=== PATIENT | female | born 1965 | race Caucasian/White ===

== ENCOUNTER 2016-08-26 21:12 | Emergency (ER) | payer MEDICARE, OTHER ==
--- NOTE | 2016-08-26 22:19 | ED ---
Overdose HPI - General Chief Complaint: Overdose Stated Complaint: Overdose Time Seen by Provider: 08/26/16 21:47 Source: patient, family, RN notes reviewed Mode of arrival: wheelchair Limitations: altered mental status - History of Present Illness Initial Comments: Patient is a 51-year-old female presents to the emergency room for evaluation of possible overdose. Patient states she's been very exhausted for the past 3- 4 days. Patient states that she has not been able to sleep. Patient states that she takes tizanidine for chronic pain. Patient states she is only supposed to take 3 per day. Patient states she took 20 throughout the day because she just wanted to sleep. Patient states that her children brought her here because they were worried. Patient states she is not suicidal. Patient states she had no plans on ending her life or harming herself. Patient states she just wanted to sleep. Patient states she has an appointment with her neurologist tomorrow. Patient denies homicidal ideations. Patient denies visual or auditory hallucinations. Patient denies headache, dizziness, abdominal pain, chest pain, shortness of breath. Patient does states she is extremely tired right now. Patient denies any other symptoms or complaints. - Related Data Home Medications Medication Instructions Recorded Confirmed Cyanocobalamin [Vitamin B-12 1,000 mcg SQ QMONTH 01/26/16 01/26/16 Injection] Ibuprofen [Motrin] 800 mg PO TID PRN 01/26/16 01/26/16 Nystatin 100,000 Unit/gm Powd 1 applic TOPICAL DAILY 01/26/16 01/26/16 [Mycostatin Powder] levETIRAcetam [Keppra] 250 mg PO Q12HR 01/26/16 01/26/16 oxyCODONE-APAP 10-325MG [Percocet 1 tab PO TID PRN 01/26/16 01/26/16 10-325 mg] rOPINIRole HCL [Requip] 0.5 mg PO HS 01/26/16 01/26/16 tiZANidine HCL [Zanaflex] 4 mg PO TID 01/26/16 01/26/16 Previous Rx's Medication Instructions Recorded Benzocaine/Menthol Lozeng [Cepacol 1 each MUCOUS MEM Q4HR PRN #30 02/02/16 lozenge] lozenge DULoxetine HCL [Cymbalta] 60 mg PO DAILY #30 capsule. 02/02/16 Fluticasone Nasal [place] [Flonase 2 spray EA NOSTRIL DAILY #1 spr 02/02/16 Nasal [place]] Gabapentin [Neurontin] 200 mg PO QID #120 cap 02/02/16 Lurasidone [Latuda] 40 mg PO DAILY #30 tab 02/02/16 Metoprolol Tartrate [Lopressor] 50 mg PO BID #60 tab 02/02/16 guaiFENesin [Mucinex] 600 mg PO Q12HR PRN #30 tablet.er 02/02/16 lamoTRIgine [LaMICtal] 50 mg PO BID #60 tab 02/02/16 lamoTRIgine [LaMICtal] 100 mg PO BID #60 tab 02/02/16 Allergies Allergy/AdvReac Type Severity Reaction Status Date / Time erythromycin base Allergy Unknown Verified 08/26/16 21:21 pregabalin [From Lyrica] Allergy Hallucinati Verified 08/26/16 21:21 ons codeine AdvReac Abdominal Verified 08/26/16 21:21 Pain meperidine [From Demerol] AdvReac Unknown Verified 08/26/16 21:21 Review of Systems ROS Statement: Those systems with pertinent positive or pertinent negative responses have been documented in the HPI. ROS Other: All systems not noted in ROS Statement are negative. 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 ago that she only had 10 yrs. to live; She was to have an MRI today 01/26/16 on her R shoulder but came to the hospital instead; She's afraid she has a tumor again. History of Any Multi-Drug Resistant Organisms: None Reported Past Surgical History: Bariatric Surgery, Breast Surgery, Section, Cholecystectomy, Hysterectomy, Orthopedic Surgery, Tonsillectomy, Tubal Ligation Additional Past Surgical History / Comment(s): gastric bypass and a revision; Bilat. Breast reduction; Bilat. Buionectomy; Left T & A only; Left Clavicle Biopsy; Colonoscopy, left lymph node excision, tubal ligation, partial hysterectomy, bilateral bunionectomy, bilateral plantar fasciiotomy. Past Anesthesia/Blood Transfusion Reactions: No Reported Reaction Additional Past Anesthesia/Blood Transfusion Reaction / Comment(s): Pt. was slow to awaken after surgery due to Demerol, which is now listed as an allergy. Past Psychological History: Anxiety, Bipolar, Depression, PTSD Smoking Status: Former smoker Past Alcohol Use History: Rare Past Drug Use History: Opiates, Prescription Drug Abuse - Past Family History Father Family Medical History: Cancer (Father at age of 62 from leukemia.) Mother Family Medical History: CVA/TIA (Mother at age of 70 from CVA.) Brother(s) Family Medical History: Coronary Artery Disease (CAD) (Patient has one brother with CAD.) Sister(s) Family Medical History: Coronary Artery Disease (CAD) (Patient has 2 sisters with CAD.) Son(s) Family Medical History: No Reported History (Patient has 2 sons no major medical problems) General Exam - General Exam Comments Initial Comments: laying in exam room, sleeping but arousable when spoken to Limitations: altered mental status General appearance: alert, in no apparent distress Head exam: Present: atraumatic, normocephalic, normal inspection Eye exam: Present: normal appearance ENT exam: Present: normal exam Neck exam: Present: normal inspection Respiratory exam: Present: normal lung sounds bilaterally. Absent: respiratory distress Cardiovascular Exam: Present: regular rate, normal rhythm, normal heart sounds GI/Abdominal exam: Present: soft, normal bowel sounds. Absent: distended, tenderness, guarding, rebound, rigid Extremities exam: Present: normal inspection Back exam: Present: normal inspection Neurological exam: Present: alert, oriented X3, CN II-XII intact, normal gait Psychiatric exam: Present: normal affect, normal mood Skin exam: Present: warm, dry, intact, normal color. Absent: rash Course Vital Signs 08/26/16 08/26/16 08/27/16 21:14 21:46 01:01 Temperature 97 F L 97.3 F L Pulse Rate 60 66 77 Respiratory 16 18 16 Rate Blood Pressure 150/78 85/60 O2 Sat by Pulse 98 98 97 Oximetry 08/27/16 02:24 Temperature 97.3 F L Pulse Rate 60 Respiratory 16 Rate Blood Pressure 102/56 O2 Sat by Pulse 98 Oximetry Medical Decision Making - Medical Decision Making patient is a 51-year-old female presents to the emergency room for evaluation medication overdose. Patient states she overdosed on her pain medications due to wanting to sleep. Poison control was contacted. Poison control states no further workup was needed and when patient is alert enough she can be discharged home. Patient is medically cleared to be evaluated by psych. Patient evaluated by psych and states that patient can be discharged home. - Lab Data Result diagrams: 08/26/16 22:45 08/26/16 22:45 Lab Results 08/26/16 08/26/16 Range/Units 22:45 22:45 WBC 15.3 H (3.8-10.6) k/uL RBC 5.18 (3.80-5.40) m/uL Hgb 14.4 (11.4-16.0) gm/dL Hct 44.5 (34.0-46.0) % MCV 85.9 (80.0-100.0) fL MCH 27.7 (25.0-35.0) pg MCHC 32.2 (31.0-37.0) g/dL RDW 13.6 (11.5-15.5) % Plt Count 358 (150-450) k/uL Neutrophils % 86 % Lymphocytes % 9 % Monocytes % 3 % Eosinophils % 1 % Basophils % 1 % Neutrophils # 13.1 H (1.3-7.7) k/uL Lymphocytes # 1.3 (1.0-4.8) k/uL Monocytes # 0.5 (0-1.0) k/uL Eosinophils # 0.1 (0-0.7) k/uL Basophils # 0.1 (0-0.2) k/uL Sodium 139 (137-145) mmol/L Potassium 3.7 (3.5-5.1) mmol/L Chloride 101 (98-107) mmol/L Carbon Dioxide 24 (22-30) mmol/L Anion Gap 14 mmol/L BUN 15 (7-17) mg/dL Creatinine 0.90 (0.52-1.04) mg/dL Est GFR (MDRD) Af Amer >60 (>60 ml/min/1.73 sqM) Est GFR (MDRD) Non-Af >60 (>60 ml/min/1.73 sqM) Glucose 208 H (74-99) mg/dL Calcium 9.8 (8.4-10.2) mg/dL Total Bilirubin 0.4 (0.2-1.3) mg/dL AST 16 (14-36) U/L ALT 33 (9-52) U/L Alkaline Phosphatase 149 H (38-126) U/L Total Protein 6.7 (6.3-8.2) g/dL Albumin 4.4 (3.5-5.0) g/dL Amylase <30 L (30-110) U/L Lipase 50 (23-300) U/L Salicylates <1.0 mg/dL Acetaminophen <10.0 ug/mL Serum Alcohol <10 mg/dL 08/26/16 23:37 normal sinus rhythm, ventricular rate 63 bpm, TN interval 160 ms, QRS duration 84 ms, QT/QTc 422/431 ms Disposition Clinical Impression: Medication overdose Disposition: HOME SELF-CARE Condition: Good Instructions: Opioid Overdose (ED) Additional Instructions: Please follow-up with primary care provider or psychiatrist. Take pain medications as directed. If any new symptom arises or symptoms worsen, return to ER as soon as possible. Referrals: Chloe Gonzalez MD [Primary Care Provider] - 1-2 days Time of Disposition: 01:03
[2016-08-26 23:18] LABS: ALT 33 U/L (9-52); AST 16 U/L (14-36); Acetaminophen <10.0 ug/mL; Alcohol <10 mg/dL; Alkaline Phosphatase 149 U/L (38-126); Amylase <30 U/L (30-110); Anion Gap 14 mmol/L; Blood Urea Nitrogen 15 mg/dL (7-17); Calcium 9.8 mg/dL (8.4-10.2); Carbon Dioxide 24 mmol/L (22-30); Chloride 101 mmol/L (98-107); Glucose 208 mg/dL (74-99); Non-African American GFR(MDRD) >60 (>60 ml/min/1.73 sqM); Potassium 3.7 mmol/L (3.5-5.1); Salicylate <1.0 mg/dL; Sodium 139 mmol/L (137-145); Total Bilirubin 0.4 mg/dL (0.2-1.3); Total Protein 6.7 g/dL (6.3-8.2)
[2016-08-26 23:19] LABS: Basophils # (A) 0.1 k/uL (0-0.2); Basophils % (A) 1 %; CH 27.8; CHCM 32.5; Eosinophils # (A) 0.1 k/uL (0-0.7); Eosinophils % (A) 1 %; HCT 44.5 % (34.0-46.0); HDW 2.61; HGB 14.4 gm/dL (11.4-16.0); Luc # (Auto) 0.11; Luc % (Auto) 1; Lymphocytes # (A) 1.3 k/uL (1.0-4.8); Lymphocytes % (A) 9 %; MCH 27.7 pg (25.0-35.0); MCHC 32.2 g/dL (31.0-37.0); MCV 85.9 fL (80.0-100.0); Monocytes # (A) 0.5 k/uL (0-1.0); Monocytes % (A) 3 %; Neutrophils # (A) 13.1 k/uL (1.3-7.7); Neutrophils % (A) 86 %; RBC 5.18 m/uL (3.80-5.40); RDW 13.6 % (11.5-15.5); WBC 15.3 k/uL (3.8-10.6); WBC (Perox) 14.51
[2016-08-27 01:10] VITALS: RESP 16; TEMP 97.3
[2016-08-27] MEDS ORDERED: SODIUM CHLORIDE 0.9% 1,000 ML IV ONE (01:11)
[2016-08-27 02:24] VITALS: BP 102/56; PULSE 60
== END 2016-08-27 02:34 | disposition home or self-care (01) ==
LOC: EC 21:12
DX: T42.8X1A Poisoning by antiparkinsonism drugs and other central muscle-tone depressants, accidental (unintentional), initial encounter (principal); R41.82 Altered mental status, unspecified; R53.83 Other fatigue; Z87.891 Personal history of nicotine dependence; Z79.899 Other long term (current) drug therapy; Z88.1 Allergy status to other antibiotic agents; Z88.5 Allergy status to narcotic agent; Z88.8 Allergy status to other drugs, medicaments and biological substances; Z85.72 Personal history of non-Hodgkin lymphomas; Z98.890 Other specified postprocedural states
CPT/HCPCS: 36415; 80053; 80299; 80320; 82075; 82150; 83520; 83690; 85025; 93005; 96360; 99284

== ENCOUNTER 2020-05-06 17:56 | Inpatient (IN) | payer MEDICARE, MEDICAID ==
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
[2020-05-06 19:57] LABS: Appearance,Urine Clear (Clear); Bacteria,Urine Rare /hpf; Bilirubin,Urine Negative (Negative); Blood,Urine Negative (Negative); Color,Urine Yellow; Glucose,Urine (UA) Negative (Negative); Ketones,Urine Negative (Negative); Leukocyte Esterase,Urine Large (Negative); Mucus,Urine Rare /hpf; Nitrite,Urine Negative (Negative); PH, Urine 5.5 (5.0-8.0); Protein,Urine Negative (Negative); Specific Gravity,Urine 1.025 (1.001-1.035); Squamous Epithelial Cell,Urine 2 /hpf (0-4); Urobilinogen,Urine <2.0 mg/dL (<2.0); WBC,Urine 19 /hpf (0-5)
[2020-05-06 20:02] LABS: Amphetamine Screen,Urine Not Detected (NotDetected); Benzodiazepines Screen,Urine Not Detected (NotDetected); Cocaine Screen,Urine Not Detected (NotDetected); Opiate Screen,Urine Detected (NotDetected); Phencyclidine Screen,Urine Not Detected (NotDetected); Tricyclic Antidepressant,Urine Not Detected (NotDetected); Urn Cannabinoid Scrn Not Detected (NotDetected)
[2020-05-06 20:03] LABS: Barbiturate Screen,Urine Not Detected (NotDetected); Methadone Screen, Urine Not Detected (NotDetected); Oxycodone Screen, Urine Not Detected (NotDetected)
[2020-05-06] MEDS ORDERED: LORazepam 1 MG TAB PO STA (20:17)
[2020-05-06] MEDS ORDERED: NYSTATIN 100,000 UNIT/GM POWD 15 GM TOPICAL PRN (22:27)
[2020-05-06] MEDS ORDERED: HYDROCORTISONE 1% CREAM 30 GM TUBE TOPICAL PRN (22:27)
[2020-05-06] MEDS ORDERED: NICOTINE 21MG/24HR PATCH TRANSDERM PRN (22:27)
[2020-05-06] MEDS ORDERED: SYMBICORT 160-4.5 MCG INHALER INHALATION PRN (22:27)
[2020-05-06] MEDS ORDERED: MAGNESIUM HYDROXIDE 2,400 MG/10 ML CUP PO PRN (22:29)
[2020-05-06] MEDS ORDERED: MAG HYDROX/AL HYDROX/SIMETH 30 ML CUP PO PRN (22:29)
[2020-05-06] MEDS ORDERED: LORazepam 2 MG/ML INJ IM PRN (22:31)
[2020-05-06] MEDS: lamoTRIgine 100 MG TAB PO SCH (23:35)
[2020-05-06] MEDS: LURASIDONE 20 MG TAB PO SCH (23:57)
[2020-05-07] MEDS: IBUPROFEN 800 MG TAB PO PRN ×2 (03:14→16:30)
[2020-05-07] MEDS: lamoTRIgine 100 MG TAB PO SCH ×2 (08:53→20:54)
[2020-05-07] MEDS: LOSARTAN 50 MG TAB PO SCH (08:53)
[2020-05-07] MEDS: FERROUS SULFATE 325 MG TAB PO SCH (08:54)
[2020-05-07] MEDS ORDERED: DULoxetine HCL 30 MG CAPSULE.DR PO SCH (09:00)
[2020-05-07] MEDS: ALBUTEROL HFA INHALER INHALATION PRN ×2 (09:49→20:54)
[2020-05-07] MEDS: LURASIDONE 20 MG TAB PO SCH ×2 (09:49→18:05)
[2020-05-07] MEDS: NICOTINE 21MG/24HR PATCH TRANSDERM SCH (09:50)
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
[2020-05-07] MEDS: PRAZOSIN 1 MG CAP PO SCH (20:56)
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
[2020-05-08] MEDS: NICOTINE 21MG/24HR PATCH TRANSDERM SCH (08:27)
[2020-05-08] MEDS: LURASIDONE 20 MG TAB PO SCH ×2 (08:27→17:10)
[2020-05-08] MEDS: lamoTRIgine 100 MG TAB PO SCH ×2 (08:29→20:44)
[2020-05-08] MEDS: LOSARTAN 50 MG TAB PO SCH ×2 (08:30→08:39)
[2020-05-08] MEDS: FERROUS SULFATE 325 MG TAB PO SCH (08:30)
[2020-05-08] MEDS: IBUPROFEN 800 MG TAB PO PRN ×2 (08:41→17:14)
[2020-05-08] MEDS ORDERED: DULoxetine HCL 30 MG CAPSULE.DR PO SCH (09:00)
[2020-05-08] MEDS ORDERED: VENLAFAXINE HCL ER 75 MG CAP PO STA (09:26)
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
[2020-05-08] MEDS: PRAZOSIN 1 MG CAP PO SCH (20:44)
[2020-05-09] MEDS: NICOTINE 21MG/24HR PATCH TRANSDERM SCH (08:57)
[2020-05-09] MEDS: LURASIDONE 20 MG TAB PO SCH ×2 (08:58→17:42)
[2020-05-09] MEDS: FERROUS SULFATE 325 MG TAB PO SCH (08:58)
[2020-05-09] MEDS: lamoTRIgine 25 MG TAB PO SCH (08:58)
[2020-05-09] MEDS: LOSARTAN 50 MG TAB PO SCH (08:59)
[2020-05-09] MEDS: ALBUTEROL HFA INHALER INHALATION PRN (09:00)
[2020-05-09] MEDS ORDERED: VENLAFAXINE HCL ER 75 MG CAP PO SCH (09:00)
--- NOTE | 2020-05-09 10:19 | P.PN ---
Progress Note - Text Progress Note Date: 05/09/20 Interval History: Patient was seen wandering the hallways and was directable and agreeable to speak with typewriter assembler in the office. The patient reports that "nothing has changed." She states that she remains worrisome about her future because she has no place to go to after she is discharged. She states that her friend is willing to take her back to the home but she does not want to return there. Furthermore, she expresses that she will has no income for appropriate housing. She states that she is desiring a particular apartment but that they have no vacancies at this time. The patient states that she is still suicidal because of her situation stating that she feels like there is no point. She continues to endorse significant depression and is tearful during the interview. She reports no significant changes to her mood regardless of the medication changes. The patient otherwise reports that she is sleeping fine. She continues to state that she has low energy during the day. Mental Status Exam: General Appearance: Patient appears to be stated age is alert, directable, and cooperative. Fair hygiene and grooming. Behavior: Patient is calmly seated without any agitated behavior. Psychomotor activity appears normal. Speech: Patient's speech is fluent and nonpressured. Mood/Affect: Mood is Described as depressed, affect is tearful and sad. Suicidality/Homicidality: The patient endorses suicidal ideation but no homicidal ideation, intention, and/or plan. Perceptions: Patient denies any visual hallucinations and denies any auditory hallucinations Though content/process: There is no evidence of any delusional thought content and thought process is linear and goal-directed. Memory and concentration: AOX3, grossly intact for the purposes of this session Judgment and insight: Improving mildly Assessment Bipolar disorder, unspecified Posttraumatic stress disorder Generalized anxiety disorder Plan: -Patient continues to meet criteria for inpatient psychiatric admission for symptom stabilization and safety. Patient has signed adult voluntary form and medication consent and was placed in patient's chart. -Medications: Increase Effexor to 150 mg by mouth daily for management of depression/anxiety/PTSD. We will gradually titrate this medication to 225 mg by mouth daily over the weekend pending patient's response and tolerance of the medication. Continue prazosin 2 mg daily at bedtime for PTSD related nightmares Continue latuda 30 mg by mouth twice a day with meals Continue Lamictal 50 mg by mouth daily and 100 mg by mouth at bedtime. We will increase to 150 mg by mouth at bedtime over the weekend pending patient's response and tolerance of the medication. -When necessary Vistaril for anxiety, Ativan and Haldol for agitation/aggression. -NRT - nicotine patch -SW on board for discharge planning. Encouraged the patient to participate in milieu.
[2020-05-09] MEDS: IBUPROFEN 800 MG TAB PO PRN (10:58)
[2020-05-09] MEDS: PRAZOSIN 1 MG CAP PO SCH (20:48)
[2020-05-09] MEDS: lamoTRIgine 100 MG TAB PO SCH (20:49)
[2020-05-10] MEDS: IBUPROFEN 800 MG TAB PO PRN ×2 (03:20→17:13)
[2020-05-10] MEDS: LORazepam 1 MG TAB PO PRN ×2 (05:07→20:52)
[2020-05-10] MEDS ORDERED: VENLAFAXINE HCL ER 150 MG CAP PO SCH (09:00)
[2020-05-10] MEDS: LURASIDONE 20 MG TAB PO SCH ×2 (09:13→17:10)
[2020-05-10] MEDS: LOSARTAN 50 MG TAB PO SCH (09:14)
[2020-05-10] MEDS: lamoTRIgine 25 MG TAB PO SCH (09:14)
[2020-05-10] MEDS: FERROUS SULFATE 325 MG TAB PO SCH (09:14)
[2020-05-10] MEDS: NICOTINE 21MG/24HR PATCH TRANSDERM SCH (09:14)
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
[2020-05-10] MEDS: lamoTRIgine 100 MG TAB PO SCH (20:52)
[2020-05-10] MEDS: PRAZOSIN 1 MG CAP PO SCH (20:52)
[2020-05-11] MEDS: LURASIDONE 20 MG TAB PO SCH ×2 (08:12→18:10)
[2020-05-11] MEDS: lamoTRIgine 25 MG TAB PO SCH (08:12)
[2020-05-11] MEDS: FERROUS SULFATE 325 MG TAB PO SCH (08:13)
[2020-05-11] MEDS: NICOTINE 21MG/24HR PATCH TRANSDERM SCH (08:13)
[2020-05-11] MEDS: LOSARTAN 50 MG TAB PO SCH (08:13)
[2020-05-11] MEDS: VENLAFAXINE HCL ER 75 MG CAP PO SCH (08:13)
[2020-05-11] MEDS: IBUPROFEN 800 MG TAB PO PRN ×2 (08:38→20:46)
[2020-05-11] MEDS: LORazepam 1 MG TAB PO PRN ×2 (08:39→20:46)
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
[2020-05-11] MEDS: lamoTRIgine 100 MG TAB PO SCH (20:43)
[2020-05-11] MEDS: PRAZOSIN 1 MG CAP PO SCH (20:43)
[2020-05-12] MEDS: LORazepam 1 MG TAB PO PRN ×3 (03:14→20:01)
[2020-05-12] MEDS: LOSARTAN 50 MG TAB PO SCH (09:10)
[2020-05-12] MEDS: lamoTRIgine 25 MG TAB PO SCH (09:10)
[2020-05-12] MEDS: VENLAFAXINE HCL ER 75 MG CAP PO SCH (09:10)
[2020-05-12] MEDS: NICOTINE 21MG/24HR PATCH TRANSDERM SCH (09:10)
[2020-05-12] MEDS: FERROUS SULFATE 325 MG TAB PO SCH (09:10)
[2020-05-12] MEDS: LURASIDONE 20 MG TAB PO SCH ×2 (09:11→17:22)
[2020-05-12] MEDS: hydrOXYzine pamoate 25 MG CAP PO PRN (09:14)
[2020-05-12] MEDS: IBUPROFEN 800 MG TAB PO PRN (09:14)
--- NOTE | 2020-05-12 11:40 | P.PN ---
Progress Note - Text Progress Note Date: 05/12/20 Interval History: Patient was seen wandering the hallways and was directable and agreeable to speak with lyric writer in the office. The patient continues to endorse elevated depression and suicidal ideation. Despite developing plans for post discharge in terms of her housing, the patient does report "what is the point of it all?" She continues to express thoughts of driving her car into a tree. The patient does state that she is tired of feeling depressed. She reports that there appears to be no reason to be keep on living. She is otherwise not reporting any homicidal ideation, intention, and/or plan. She is denying any auditory or visual hallucinations. She denies any paranoia or other delusions. She has been adherent with the medications and is not reporting any significant side effects at this time. She does report that she had some difficulty sleeping due to more frequent nightmares. Mental Status Exam: General Appearance: Patient appears to be stated age is alert, directable, and cooperative. Fair hygiene and grooming. Behavior: Patient is calmly seated without any agitated behavior. Psychomotor activity appears normal. Speech: Patient's speech is fluent and nonpressured. Mood/Affect: Mood is described as depressed, affect is tearful and sad. Suicidality/Homicidality: The patient endorses suicidal ideation with plan but no homicidal ideation, intention, and/or plan. Perceptions: Patient denies any visual hallucinations and denies any auditory hallucinations Though content/process: There is no evidence of any delusional thought content and thought process is linear and goal-directed. Memory and concentration: AOX3, grossly intact for the purposes of this session Judgment and insight: Improving mildly Assessment Bipolar disorder, unspecified Posttraumatic stress disorder Generalized anxiety disorder Plan: -Patient continues to meet criteria for inpatient psychiatric admission for symptom stabilization and safety. Patient has signed adult voluntary form and medication consent and was placed in patient's chart. -Medications: Continue Effexor XR 225 mg daily for depression/PTSD Increase prazosin to 3 mg daily at bedtime for PTSD related nightmares Continue Latuda 30 mg by mouth twice a day with meals Continue Lamictal 50 mg by motuh daily and 150 mg by mouth at bedtime -When necessary Vistaril for anxiety, Ativan and Haldol for agitation/aggression. -NRT - nicotine patch -SW on board for discharge planning. Encouraged the patient to participate in milieu.
[2020-05-12] MEDS: lamoTRIgine 100 MG TAB PO SCH (20:00)
[2020-05-12] MEDS ORDERED: PRAZOSIN 1 MG CAP PO SCH (21:00)
[2020-05-13] MEDS: IBUPROFEN 800 MG TAB PO PRN ×3 (00:42→16:52)
[2020-05-13] MEDS: NICOTINE 21MG/24HR PATCH TRANSDERM SCH (07:49)
[2020-05-13] MEDS: FERROUS SULFATE 325 MG TAB PO SCH (07:50)
[2020-05-13] MEDS: LURASIDONE 20 MG TAB PO SCH ×2 (07:51→16:50)
[2020-05-13] MEDS: lamoTRIgine 25 MG TAB PO SCH ×2 (07:51→20:47)
[2020-05-13] MEDS: VENLAFAXINE HCL ER 75 MG CAP PO SCH (07:51)
[2020-05-13] MEDS: LOSARTAN 50 MG TAB PO SCH (07:51)
--- NOTE | 2020-05-13 11:31 | P.PN ---
Progress Note - Text Progress Note Date: 05/13/20 Interval History: Patient was seen wandering the hallways and was directable and agreeable to speak with contract technical writer in the office. The patient reports that she has been feeling a little better. She continues to endorse significant depression but states that overall her mood has improved. She notes that she notices that she is less tearful and less overwhelmed with the idea of what is to happen if she was to be discharged. She continues to endorse some suicidal ideation with a plan to drive into a tree but does not report any intention or plan. She is reporting some difficulty sleeping last night and some low energy today. She states that she was expressing nightmares last night again. She is otherwise not reporting any hopelessness, helplessness, or psychomotor slowing. She denies any auditory or visual hallucinations patient denies any paranoia or other delusions. She is the medications and does not report any significant side effects at this time. Mental Status Exam: General Appearance: Patient appears to be stated age is alert, directable, and cooperative. Fair hygiene and grooming. Behavior: Patient is calmly seated without any agitated behavior. Psychomotor activity appears normal. Speech: Patient's speech is fluent and nonpressured. Mood/Affect: Mood is described as depressed, affect is congruent and constricted. Less tearful today. Suicidality/Homicidality: The patient endorses suicidal ideation with plan but no homicidal ideation, intention, and/or plan. Perceptions: Patient denies any visual hallucinations and denies any auditory hallucinations Though content/process: There is no evidence of any delusional thought content and thought process is linear and goal-directed. Memory and concentration: AOX3, grossly intact for the purposes of this session Judgment and insight: Improving mildly Assessment Bipolar disorder, unspecified Posttraumatic stress disorder Generalized anxiety disorder Plan: -Patient continues to meet criteria for inpatient psychiatric admission for symptom stabilization and safety. Patient has signed adult voluntary form and medication consent and was placed in patient's chart. -Medications: Continue Effexor XR 225 mg daily for depression/PTSD Increase prazosin to 4 mg daily at bedtime for PTSD related nightmares Continue Latuda 30 mg by mouth twice a day with meals Increase Lamictal to 50 mg by motuh daily and 175 mg by mouth at bedtime -When necessary Vistaril for anxiety, Ativan and Haldol for agitation/aggression. -NRT - nicotine patch -SW on board for discharge planning. Encouraged the patient to participate in milieu.
[2020-05-13] MEDS: PRAZOSIN 1 MG CAP PO SCH (20:46)
[2020-05-13] MEDS: lamoTRIgine 100 MG TAB PO SCH (20:47)
[2020-05-13] MEDS: LORazepam 1 MG TAB PO PRN (21:15)
[2020-05-14] MEDS: hydrOXYzine pamoate 25 MG CAP PO PRN (01:54)
[2020-05-14] MEDS: IBUPROFEN 800 MG TAB PO PRN ×2 (01:54→16:49)
[2020-05-14] MEDS: LURASIDONE 20 MG TAB PO SCH ×2 (08:17→17:49)
[2020-05-14] MEDS: LOSARTAN 50 MG TAB PO SCH ×2 (08:18→08:35)
[2020-05-14] MEDS: lamoTRIgine 25 MG TAB PO SCH ×2 (08:18→21:23)
[2020-05-14] MEDS: FERROUS SULFATE 325 MG TAB PO SCH (08:18)
[2020-05-14] MEDS: NICOTINE 21MG/24HR PATCH TRANSDERM SCH (08:18)
[2020-05-14] MEDS: VENLAFAXINE HCL ER 75 MG CAP PO SCH (08:18)
--- NOTE | 2020-05-14 10:25 | P.PN ---
Progress Note - Text Progress Note Date: 05/14/20 Interval History: Patient was seen wandering the hallways and was directable and agreeable to speak with the senior underwriter in her room. The patient continues to endorse significant symptoms of depression. She reports that she was "upset that I woke up today." She states that she would prefer to just stay to sleep and not woke up at all. She is reporting low energy and significant physical pain. She is otherwise not endorsing any active suicidal or homicidal ideation, intention, and/or plan. She is not reporting any auditory or visual hallucinations patient is denying any paranoia or other delusions. She's been adherent with the medications and is not reporting any significant side effects at this time. She has been able to participate in groups. She reports no issues with appetite or sleep. Mental Status Exam: General Appearance: Patient appears to be stated age is alert, directable, and cooperative. Fair hygiene and grooming. Behavior: Patient is calmly seated without any agitated behavior. Psychomotor activity appears normal. Speech: Patient's speech is fluent and nonpressured. Mood/Affect: Mood is described as depressed, affect is congruent and constricted. Suicidality/Homicidality: The patient endorses passive thoughts of . She denies any homicidal ideation, intention, and/or plan. Perceptions: Patient denies any visual hallucinations and denies any auditory hallucinations Though content/process: There is no evidence of any delusional thought content and thought process is linear and goal-directed. Memory and concentration: AOX3, grossly intact for the purposes of this session Judgment and insight: Improving mildly Assessment Bipolar disorder, unspecified Posttraumatic stress disorder Generalized anxiety disorder Plan: -Patient continues to meet criteria for inpatient psychiatric admission for symptom stabilization and safety. Patient has signed adult voluntary form and medication consent and was placed in patient's chart. -Medications: Continue Effexor XR 225 mg daily for depression/PTSD Continue prazosin 4 mg daily at bedtime for PTSD related nightmares Continue Latuda 30 mg by mouth twice a day with meals Continue Lamictal to 50 mg by motuh daily and 175 mg by mouth at bedtime -When necessary Vistaril for anxiety, Ativan and Haldol for agitation/aggression. -NRT - nicotine patch -SW on board for discharge planning. Encouraged the patient to participate in milieu.
[2020-05-14] MEDS ORDERED: BENZOCAINE/MENTHOL LOZENG 1 EACH LOZENGE MUCOUS MEM PRN (11:38)
[2020-05-14 14:45] VITALS: BMI 35.4
[2020-05-14] MEDS: PRAZOSIN 1 MG CAP PO SCH (21:23)
[2020-05-14] MEDS: lamoTRIgine 100 MG TAB PO SCH (21:23)
[2020-05-14] MEDS: LORazepam 1 MG TAB PO PRN (21:24)
[2020-05-15] MEDS: IBUPROFEN 800 MG TAB PO PRN ×2 (00:15→17:17)
[2020-05-15] MEDS: NICOTINE 21MG/24HR PATCH TRANSDERM SCH (08:35)
[2020-05-15] MEDS: LURASIDONE 20 MG TAB PO SCH ×2 (08:36→17:15)
[2020-05-15] MEDS: FERROUS SULFATE 325 MG TAB PO SCH (08:37)
[2020-05-15] MEDS: lamoTRIgine 25 MG TAB PO SCH ×2 (08:38→20:49)
[2020-05-15] MEDS: LOSARTAN 50 MG TAB PO SCH (08:39)
[2020-05-15] MEDS: VENLAFAXINE HCL ER 75 MG CAP PO SCH (08:39)
--- NOTE | 2020-05-15 10:10 | P.PN ---
Progress Note - Text Progress Note Date: 05/15/20 Interval History: Patient was seen wandering the hallways and was directable and agreeable to speak with the assembly instructions writer in her room. The patient reports that she is feeling better today. She states that when she was attending group, she laughed harder than she has in a year. She reports that she last expressed suicidal ideation yesterday morning. She is currently not reporting any suicidal or homicidal ideation, intention, and/or plan today. She is not reporting any auditory or visual hallucinations. She is denying any paranoia or other delusions. She has been in adherent to medications not reporting any significant side effects at this time. She appears to be more future oriented; thinking about and plannign her life posthospitalization. Mental Status Exam: General Appearance: Patient appears to be stated age is alert, directable, and cooperative. Fair hygiene and grooming. Behavior: Patient is calmly seated without any agitated behavior. Psychomotor activity appears normal. Speech: Patient's speech is fluent and nonpressured. Mood/Affect: Mood is described as depressed, affect is congruent and constricted. Suicidality/Homicidality: The patient endorses passive thoughts of . She denies any homicidal ideation, intention, and/or plan. Perceptions: Patient denies any visual hallucinations and denies any auditory hallucinations Though content/process: There is no evidence of any delusional thought content and thought process is linear and goal-directed. Memory and concentration: AOX3, grossly intact for the purposes of this session Judgment and insight: Improving mildly Assessment Bipolar disorder, unspecified Posttraumatic stress disorder Generalized anxiety disorder Plan: -Patient continues to meet criteria for inpatient psychiatric admission for symptom stabilization and safety. Patient has signed adult voluntary form and medication consent and was placed in patient's chart. -Medications: Continue Effexor XR 225 mg daily for depression/PTSD Continue prazosin 4 mg daily at bedtime for PTSD related nightmares Continue Latuda 30 mg by mouth twice a day with meals Continue Lamictal to 50 mg by motuh daily and 175 mg by mouth at bedtime -When necessary Vistaril for anxiety, Ativan and Haldol for agitation/aggression. -NRT - nicotine patch -SW on board for discharge planning. Encouraged the patient to participate in milieu.
[2020-05-15] MEDS: LORazepam 1 MG TAB PO PRN (17:17)
[2020-05-15] MEDS: PRAZOSIN 1 MG CAP PO SCH (20:49)
[2020-05-15] MEDS: lamoTRIgine 100 MG TAB PO SCH (20:49)
[2020-05-15 21:35] VITALS: RESP 18
[2020-05-16] MEDS: IBUPROFEN 800 MG TAB PO PRN ×2 (01:45→09:23)
[2020-05-16] MEDS: LORazepam 1 MG TAB PO PRN ×2 (01:46→09:23)
[2020-05-16] MEDS: NICOTINE 21MG/24HR PATCH TRANSDERM SCH (09:16)
[2020-05-16] MEDS: LOSARTAN 50 MG TAB PO SCH (09:16)
[2020-05-16] MEDS: LURASIDONE 20 MG TAB PO SCH ×2 (09:16→17:42)
[2020-05-16] MEDS: VENLAFAXINE HCL ER 75 MG CAP PO SCH (09:16)
[2020-05-16] MEDS: FERROUS SULFATE 325 MG TAB PO SCH (09:16)
[2020-05-16] MEDS: lamoTRIgine 25 MG TAB PO SCH (09:16)
[2020-05-16 09:25] VITALS: BP 114/55; PULSE 102
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
[2020-05-16 17:27] VITALS: TEMP 97.9
== END 2020-05-16 18:10 | disposition home or self-care (01) | DRG 885 ==
LOC: EC 17:56 → 3MHU 22:12
PROVIDERS: ADMIT Psychiatry & Neurology Psychiatry; ATTEND Psychiatry & Neurology Psychiatry
DX: F31.30 Bipolar disorder, current episode depressed, mild or moderate severity, unspecified (principal); C85.90 Non-Hodgkin lymphoma, unspecified, unspecified site; R45.851 Suicidal ideations; F41.0 Panic disorder [episodic paroxysmal anxiety]; F41.1 Generalized anxiety disorder; F43.10 Post-traumatic stress disorder, unspecified; I10 Essential (primary) hypertension; J44.9 Chronic obstructive pulmonary disease, unspecified; Z59.0 Homelessness; Z71.6 Tobacco abuse counseling; F17.210 Nicotine dependence, cigarettes, uncomplicated; F11.11 Opioid abuse, in remission; Z88.6 Allergy status to analgesic agent; Z88.1 Allergy status to other antibiotic agents; Z88.5 Allergy status to narcotic agent; Z88.8 Allergy status to other drugs, medicaments and biological substances; Z79.51 Long term (current) use of inhaled steroids; Z79.899 Other long term (current) drug therapy; Z82.49 Family history of ischemic heart disease and other diseases of the circulatory system; Z90.711 Acquired absence of uterus with remaining cervical stump; Z98.84 Bariatric surgery status; Z20.822 Contact with and (suspected) exposure to COVID-19; Z90.89 Acquired absence of other organs; Z90.49 Acquired absence of other specified parts of digestive tract; Z82.3 Family history of stroke; Z80.9 Family history of malignant neoplasm, unspecified
CPT/HCPCS: 80306; 81001; 82075; 87086; 87635; 99285